=== PATIENT | female | born 1990 | race Caucasian/White ===

== ENCOUNTER → 2017-10-17 | Outpatient (CLI) | payer OTHER ==
[~2017-10-17] MED LIST: BACT800T5 PO; CEPH500 PO; LORTA5 PO; ZOFR4TAB3 SL
--- NOTE | 2017-10-18 21:18 | EKG ---
Date Performed: 10/17/2017 Time Performed: 16:41:18 PTAGE: 27 years EKG: SINUS BRADYCARDIA BORDERLINE ECG NO PREVIOUS TRACING DOCTOR: Shena Condon Interpretating Date/Time 10/18/2017 21:17:37
== END ==
LOC: HCAV 16:26
DX: E66.9 Obesity, unspecified (principal); R00.1 Bradycardia, unspecified
CPT/HCPCS: 93005

== ENCOUNTER 2017-12-06 06:07 | Inpatient (IN) ==
[2017-12-06] MEDS ORDERED: Famotidine PF Inj 20 MG/2 ML Vial ONE (07:29)
[2017-12-06] MEDS ORDERED: Scopalamine 1.5 MG Patch T-DERMAL ONE (07:33)
[2017-12-06] MEDS ORDERED: Metoprolol Tartrate 25 MG Tablet PO SCH (08:15)
[2017-12-06] MEDS ORDERED: Chlorhexidine Gluconate 2% 1 Pack (2 Cloths) TOPICAL SCH (08:15)
[2017-12-06] MEDS: Bupivacaine/Epinephrine Inj 0.25% 50 ML Vial ONE ×2 (08:36→16:52)
[2017-12-06] MEDS ORDERED: Sodium Chlor 0.9% Inj 500 ML IV.SIG SCH (09:00)
[2017-12-06] MEDS ORDERED: ceFAZolin 2 GM/NS 100 ML IV; Q8H IV.SIG SCH ×2 (09:00)
[2017-12-06] MEDS ORDERED: diphenhydrAMINE HCl 12.5 MG/5 ML Elixir UDC PO PRN (10:15)
[2017-12-06] MEDS ORDERED: Post-op Orders (for Pharmacy) OTHER STA (10:15)
[2017-12-06] MEDS ORDERED: Morphine Inj 30 MG/30 ML PCA.VIAL PCA PRN (10:18)
[2017-12-06] MEDS ORDERED: Naloxone Inj 0.4 MG/ML Vial IV.PUSH PRN (10:18)
[2017-12-06] MEDS ORDERED: fentaNYL Citrate Inj 100 MCG/2 ML Ampul ONE (10:37)
[2017-12-06] MEDS ORDERED: KCL 20 mEq/D5W/NaCl 0.45% Inj 1,000 ML ONE (10:37)
[2017-12-06] MEDS ORDERED: Morphine Inj 30 MG/30 ML PCA.VIAL PCA ONE (10:38)
[2017-12-06] MEDS ORDERED: Morphine Inj 4 MG/ML Vial ONE ×2 (10:38)
[2017-12-06] MEDS ORDERED: HYDROmorphone PF Inj 2 MG/ML Vial ONE (10:45)
[2017-12-06] MEDS: KCL 20 mEq/D5W/NaCl 0.45% Inj 1,000 ML IV.CONT SCH ×2 (11:42→21:00)
[2017-12-06] MEDS ORDERED: Neostigmine Inj 5 MG/5 ML Syringe IV.PUSH ONE (12:00)
[2017-12-06] MEDS ORDERED: Phenylephrine/NS 1000 MCG/10ML Syringe IV.PUSH ONE (12:00)
[2017-12-06] MEDS ORDERED: Glycopyrrolate Inj 1 MG/5 ML Syringe IV.PUSH ONE (12:00)
[2017-12-06] MEDS ORDERED: Esmolol Bolus Inj 100 MG/10 ML Vial IV.PUSH ONE (12:00)
[2017-12-06] MEDS ORDERED: Lidocaine PF 1% Inj 5 ML Syringe INFILTRATN ONE (12:00)
[2017-12-06] MEDS: Enoxaparin Inj 40 MG/0.4 ML Syringe SQ SCH (15:00)
[2017-12-07 06:33] LABS: Baso % (Auto) 0.4 % (0.0-2.0); Eos % (Auto) 0.4 % (0.0-4.0); Hematocrit 29.1 % (35.0-46.0); Hemoglobin 10.2 gm/dL (11.6-15.3); Lymph # (Auto) 1.8 th/mm3 (1.0-4.8); Lymph % (Auto) 26.5 % (9.0-44.0); Mean Corpuscular Hemoglobin 29.3 pg (27.0-34.0); Mean Corpuscular Volume 83.7 fL (80.0-100.0); Mean Platelet Volume 8.1 fL (7.0-11.0); Mono # (Auto) 0.6 th/mm3 (0.0-0.9); Mono % (Auto) 8.2 % (0.0-8.0); Neut # (Auto) 4.5 th/mm3 (1.8-7.7); Neut % (Auto) 64.5 % (16.0-70.0); Red Blood Count 3.47 mil/mm3 (4.00-5.30); Red Cell Distribution Width 12.8 % (11.6-17.2); White Blood Count 6.9 th/mm3 (4.0-11.0)
[2017-12-07 07:01] LABS: Anion Gap 7 meq/L (5-15); Blood Urea Nitrogen 7 mg/dL (7-18); Calcium 7.5 mg/dL (8.5-10.1); Carbon Dioxide 25.4 meq/L (21.0-32.0); Chloride 110 meq/L (98-107); Glomerular Filtration Rate Greater Than 89 mL/min (>89); Glucose,Random 96 mg/dL (74-106); Magnesium 2.1 mg/dL (1.5-2.5); Potassium 3.6 meq/L (3.5-5.1); Sodium 142 meq/L (136-145)
[2017-12-07] MEDS: KCL 20 mEq/D5W/NaCl 0.45% Inj 1,000 ML IV.CONT SCH ×3 (07:19→21:24)
[2017-12-07 07:48] LABS: Platelet Count 184 th/mm3 (150-450); Platelet Estimate Normal (Normal); Platelet Morphology Normal (Normal)
--- NOTE | 2017-12-07 12:13 | P.PNGS ---
Subjective Interval history: Pain and nausea well contolled Physical Exam Vital signs: Vital Signs 12/06/17 13:30 12/06/17 14:00 12/06/17 16:19 Temperature 98.5 F Pulse Rate 81 Respiratory Rate 18 17 Blood Pressure 94/50 L Pulse Oximetry 94 L 99 99 12/06/17 18:17 12/06/17 20:00 12/07/17 00:00 Temperature 98.2 F 97.8 F 98.1 F Pulse Rate 57 L 61 54 L Respiratory Rate 17 17 18 Blood Pressure 91/54 L 104/68 95/56 L Pulse Oximetry 96 98 97 12/07/17 05:10 12/07/17 08:00 Temperature 97.6 F 98.0 F Pulse Rate 71 56 L Respiratory Rate 17 17 Blood Pressure 102/55 L 82/52 L Pulse Oximetry 96 98 Intake & Output 12/06/17 12/07/17 12/07/17 18:59 06:59 18:59 Intake Total 2910 / 2910 1760 / 1760 1200 / 1200 Output Total 250 / 250 Balance 2660 / 2660 1760 / 1760 1200 / 1200 Weight 99 kg Intake: IV 1700 / 1700 1400 / 1400 1200 / 1200 D5W/1/2NS + KCL 20 mEq Inj 1, 1000 / 1000 1000 / 1000 000 ML @ 125 mls/hr IV.CONT . Q8H ADRIANNE Rx#:[id number] Ofirmev Inj 1,000 mg In 100 ml 200 / 200 200 / 200 @ 400 mls/hr IV.SIG Q6H ADRIANNE Rx# :[id number] LR 1000 mL Inj 1,000 ML @ 30 1000 / 1000 mls/hr IV.SIG .Q24H ADRIANNE Rx#: [id number] Ancef Inj 1,000 MG In NS Inj 100 / 100 100 / 100 100 / 100 100 ML @ 200 mls/hr IV.SIG Q8H ADRIANNE Rx#:[id number] Ancef Inj 2,000 MG In NS Inj 80 100 / 100 ML @ 200 mls/hr IV.SIG ENGINE WATCHMAN ADRIANNE Rx#:[id number] Flagyl 500 MG Inj 100 ML @ 100 300 / 300 100 / 100 100 / 100 mls/hr IV.SIG Q8H ADRIANNE Rx#: [id number] Oral 210 / 210 360 / 360 Anesthesia Amount 1000 / 1000 Output: Urine 200 / 200 Estimated Blood Loss 50 / 50 Other: # Voids 4 # Bowel Movements 0 Narrative: GENERAL: NAD CARDIOVASCULAR: RRR RESPIRATORY: CTA GASTROINTESTINAL: Abdomen soft, normal post operative tenderness MUSCULOSKELETAL: Extremities without clubbing, cyanosis, or edema. - Additional findings Additional findings: Laboratory Results - last 12 hr 12/07/17 12/07/17 05:52 05:52 WBC 6.9 RBC 3.47 L Hgb 10.2 L Hct 29.1 L MCV 83.7 MCH 29.3 MCHC 35.0 RDW 12.8 Plt Count 184 MPV 8.1 Prelim Diff (Auto) Slide review pending Neut % (Auto) 64.5 Lymph % (Auto) 26.5 [place] % (Auto) 8.2 H Eos % (Auto) 0.4 Baso % (Auto) 0.4 Neut # (Auto) 4.5 Lymph # (Auto) 1.8 [place] # (Auto) 0.6 Eos # (Auto) 0.0 Baso # (Auto) 0.0 WBC Differential . Diff Scan Auto diff confirmed Differential Comment . 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 I reviewed and agree with the findings presented. I attest that I had a [id number] encounter with the patient on the same day, and personally performed and documented my assessment and findings in the medical record.
[2017-12-07] MEDS: Enoxaparin Inj 40 MG/0.4 ML Syringe SQ SCH (15:23)
[2017-12-07] MEDS: Acetaminophen-HYDROcodone 325/7.5 Liq 15 ML UDC PO PRN (19:00)
[2017-12-08 01:40] VITALS: RESP 16
[2017-12-08] MEDS: KCL 20 mEq/D5W/NaCl 0.45% Inj 1,000 ML IV.CONT SCH (03:47)
[2017-12-08] MEDS: Acetaminophen-HYDROcodone 325/7.5 Liq 15 ML UDC PO PRN (03:47)
[2017-12-08 08:22] VITALS: BP 103/55; PULSE 61; TEMP 98.2; O2SAT 97
--- NOTE | 2017-12-13 21:06 | MP ---
cc: Robb Pyle MD, Joel L MD DATE OF OPERATION: 12/06/2017 DATE OF OPERATION: 12/06/2017 PREOPERATIVE DIAGNOSES: 1. Severe reflux, unresponsive to medical management. 2. Obesity. POSTOPERATIVE DIAGNOSES: 1. Severe reflux, unresponsive to medical management. 2. Obesity. PROCEDURE PERFORMED: Laparoscopic Kelvin-en-Y gastric bypass, 100 cm Kelvin limb, antegastric, antecolic. SURGEON: Robb Pyle MD DREDGE PUMPER: Smooth Valdivia MD. Dr. Valdivia's assistance was necessary for the procedure due to the complexity of the procedure. Dr. Valdivia assisted with manipulation and exposure during the procedure. Dr. Valdivia was present for the entire procedure. The construction project assistant provided by [employer] was utilized managing the camera. ANESTHESIA: General endotracheal anesthesia. ESTIMATED BLOOD LOSS: Less than 10 mL FINDINGS: Fatty liver. SPECIMENS: None. COMPLICATIONS: None. OPERATION: The patient was brought to the operating room and placed on the operating table in supine position. Bilateral sequential inflation device placed on lower extremities, general anesthesia instituted. Antibiotics initiated. The abdomen was prepped and draped sterilely. A point in the umbilicus was anesthetized with 0.25% Marcaine with epinephrine. The skin incision was made, 5-mm Optiview port placed under direct vision, and pneumoperitoneum created. Under direct vision, a 5-mm left upper quadrant, 12-mm left upper quadrant, 12-mm right upper quadrant and 5-mm right upper quadrant ports were placed. Prior to placement of all ports, the skin and peritoneum were anesthetized with 0.25% Marcaine with epinephrine. The patient's abdominal cavity was inspected, findings as above. The omentum was lifted into the upper abdomen. It was split down the middle to create a path for the Kelvin limb. The ligament of Treitz was identified, a point 40 cm distal identified. The small bowel was divided in this region using [place] Flex stapler vascular load reinforced with SeamGuard. The distal was brought up for a distance of 100 cm. An enterotomy created in this region, enterotomy in the biliopancreatic limb, and a [id number] stapled jejunojejunostomy created in the usual manner. The mesenteric defect at the jejunojejunostomy closed with 2-0 Surgidac suture in a running manner. The patient was placed in reverse Trendelenburg position, left side up. Genoveva-Flex retractor was placed. The left lobe of the liver was retracted. The omentum was taken down off of the lateral staple line. A point 5 cm distal to the GE junction identified. The lesser sac entered. The stomach partitioned horizontally using the [place] Flex stapler Gold load. The Kelvin limb was then brought up, a gastrotomy created in the stomach, enterotomy in the Kelvin limb. The gastrojejunostomy created using a blue staple fire and stomal opening of 2 cm. An 18-Croatian OG tube placed across the anastomosis. The defect was then closed in 2 layers of running 2-0 Vicryl. Prior to placement of the second layer, methylene blue instilled through the OG tube. There was no evidence of extravasation. Evicel was then placed over the gastrojejunostomy, jejunojejunostomy and all staple lines. The operative field was inspected. Hemostasis was present. The Genoveva-Flex retractor was removed. CO2 released. All ports were removed, all skin incisions closed with 4-0 Monocryl. The abdominal wall was cleaned and a sterile dressing placed. The patient was awakened and taken to the recovery room. MD MYLES Celeste/cheryl/ashlyn , 06:58 PM , 07:08 PM
== END 2017-12-08 11:51 | disposition home or self-care (01) ==
LOC: HSDI 06:07 → EDSTATUS 08:00 → N07 13:21 → UNDODISIN 12-08 11:03
PROVIDERS: ADMIT Surgery; ATTEND Surgery

== ENCOUNTER 2017-12-12 23:46 | Inpatient (IN) ==
[2017-12-13 00:56] LABS: Baso # (Auto) 0.1 th/mm3 (0.0-0.2); Baso % (Auto) 0.7 % (0.0-2.0); Eos # (Auto) 0.4 th/mm3 (0.0-0.4); Eos % (Auto) 4.4 % (0.0-4.0); Hematocrit 37.4 % (35.0-46.0); Hemoglobin 12.5 gm/dL (11.6-15.3); Lymph # (Auto) 2.3 th/mm3 (1.0-4.8); Lymph % (Auto) 25.8 % (9.0-44.0); Mean Corpuscular HGB Conc 33.3 % (32.0-36.0); Mean Platelet Volume 8.3 fL (7.0-11.0); Mono # (Auto) 0.7 th/mm3 (0.0-0.9); Mono % (Auto) 7.6 % (0.0-8.0); Neut # (Auto) 5.5 th/mm3 (1.8-7.7); Neut % (Auto) 61.5 % (16.0-70.0); Platelet Count 291 th/mm3 (150-450); Red Blood Count 4.46 mil/mm3 (4.00-5.30); Red Cell Distribution Width 12.9 % (11.6-17.2)
[2017-12-13 00:57] LABS: Albumin 3.4 g/dL (3.4-5.0); Anion Gap 8 meq/L (5-15); Aspartate Aminotransferase 13 U/L (15-37); Blood Urea Nitrogen 12 mg/dL (7-18); Calcium 8.7 mg/dL (8.5-10.1); Carbon Dioxide 24.5 meq/L (21.0-32.0); Chloride 108 meq/L (98-107); Glomerular Filtration Rate Greater Than 89 mL/min (>89); Glucose,Random 84 mg/dL (74-106); Lipase 666 U/L (73-393); Sodium 140 meq/L (136-145)
[2017-12-13 01:02] LABS: Alanine Aminotransferase 19 U/L (10-53); Alkaline Phosphatase 107 U/L (45-117); Total Protein 7.5 g/dL (6.4-8.2)
[2017-12-13] MEDS ORDERED: HYDROmorphone PF Inj 0.5 MG/0.5 ML Syringe IV.PUSH ONE (02:00)
[2017-12-13] MEDS ORDERED: HYDROmorphone PF Inj 2 MG/ML Vial IV.PUSH ONE ×2 (02:28→05:04)
--- NOTE | 2017-12-13 03:02 | ED ---
HPI General Chief complaint: Abdominal Pain Stated complaint: Post op pain 12/06 Time Seen by Provider: 12/13/17 01:08 Source: patient Limitations: no limitations History of Present Illness HPI narrative: The patient is a 27 year old female who presents to the [facility] emergency department with a history of increasing abdominal pain that began between 3 and 4 PM today. The patient reports that the pain is in the upper aspect of the abdomen. She reports that she had mild pain postoperatively since December 06 when she had a gastric bypass done by Dr. Joy. She reports that suddenly the pain became much worse today. The patient reports the pain is a cramping/tightening sensation that radiates to her back. She denies having any redness of her postop wounds. She denies having any drainage. She denies having any recent fevers or chills. She denies having any nausea, vomiting, or diarrhea associated with this. In fact she reports that she did move her bowels earlier today, however it was harder than usual at 1 PM. She reports that she has been taking an [id number] stool softener. She denies having any blood in her stool. The patient reports that prior to having the gastric bypass done she did have a gastric sleeve done in 2014. This required reversal due to severe acid reflux. She is currently on pantoprazole. She reports that she is on Tylenol with codeine syrup for pain. She reports that she last took a dose earlier this evening. On review of systems otherwise, the patient denies having any cough, congestion, neck pain , chest pain, shortness of breath, or neurologic symptoms. She denies having any dysuria or urinary urgency, however she has had urinary frequency. She is unsure whether she had a catheter in place for the procedure. LMP: December 03, 2017 Related Data Home Medications Medication Instructions Recorded Confirmed multivitamin [Daily Multi-Vitamin] 1 tab PO TID 12/04/17 12/13/17 pantoprazole 40 mg PO BID 12/04/17 12/13/17 Allergies Allergy/AdvReac Type Severity Reaction Status Date / Time No Known Allergies Allergy Verified 12/06/17 07:17 Review of Systems ROS: all other systems reviewed are negative (Except for that which was mentioned in the HPI.) [facility] Medical History Medical History Wears glasses (Acute) Hx of abdominal abscess (Acute) Back pain (Acute) Uses contraceptive implant for control (Acute) Asthma (Acute) GERD (gastroesophageal reflux disease) (Acute) Surgical History Surgical History Hx of tonsillectomy (Acute) Hx of cholecystectomy (Acute) History of gastric surgery (Acute) Social History Social History Substance History: No History of Abuse Second Hand Smoke Exposure: No Smoking Status: Never smoker How Often Do You Have a Drink Containing Alcohol: Monthly or less Recent Travel in [facility] within the Last 8 Weeks: No Recent Out of Country Travel within the Last 8 Weeks: No Immunization History Tetanus Immunization: <5 Years Hx Influenza Vaccine This Season: Yes Exam Const General: cooperative, well developed and acute distress (Related to upper abdominal pain.) moderate HENMT Head: normocephalic and atraumatic Nose: no nasal discharge and no epistaxis Mouth: other (Tacky mucous membranes.) Throat: posterior oropharynx normal and uvula midline Eyes Sclera: normal sclerae Pupils: PERRL Neck Neck: no meningeal signs, trachea midline and no JVD Resp Effort & Inspection: no use of accessory muscles Auscultation: clear to auscultation bilaterally Cardio Rate: regular rate Rhythm: regular rhythm Heart Sounds: no murmurs GI Inspection: non-distended Palpation: soft, no hepatosplenomegaly and tender in the epigastrum, in the LLQ and periumbilically (Along with the area just above the umbilicus. The postoperative wounds appear to be healing well. There is no increased erythema , drainage, or induration noted.); not in the RLQ, not in the LUQ, not in the RUQ, not at McBurney's point, not suprapubicly and Chan's sign negative Auscultation: normal bowel sounds Back/Spine/Pelvis Back: no CVA tenderness Skin General: dry skin (warm) Neuro General: alert, awake and oriented x3 Cranial Nerves: other (No facial asymmetry.) Speech: speech normal Motor: no movement abnormalities noted Extrem General: normal to inspection (No calf tenderness on palpation. 2+ pulses in all 4 extremities.), no clubbing, no cyanosis and no edema Psych Mood: congruent mood Affect: normal affect Judgment: judgment good Course Consultations Consultation #1: The patient's case including history, pertinent physical examination findings, and laboratory studies were discussed with Dr. Joy. He requested that the patient be held in the emergency department for his evaluation. Time: 04:37 Initial Documented Vital Signs Temperature 97.9 F 12/12/17 23:57 Pulse Rate 107 H 12/12/17 23:57 Respiratory Rate 20 12/12/17 23:57 Blood Pressure 103/65 12/12/17 23:57 Pulse Oximetry 100 12/12/17 23:57 Last Documented Vital Signs Temperature 97.9 F 12/12/17 23:57 Pulse Rate 66 12/13/17 04:00 Respiratory Rate 18 12/13/17 04:00 Blood Pressure 94/51 L 12/13/17 04:00 Pulse Oximetry 100 12/13/17 04:00 Medical Decision Making MDM Narrative Medical decision making narrative: During the course of the patient's emergency department visit, the patient's history, examination, and differential diagnosis were reviewed with the patient. The patient was placed on a live games dealer with oximetry and frequent blood pressure monitoring. The patient had IV access obtained and blood work sent for analysis. A diagnostic evaluation was started regarding this patient's postoperative abdominal pain. The patient was initially provided normal saline 1 L IV fluid bolus, Zofran 4 mg IV, hydromorphone 0.5 mg IV. The patient had a recurrence of pain and required additional pain medication, 0.5 mg IV. The patient's diagnostic evaluation is remarkable for a white count that is normal at 9, differential within normal limits, platelets 291, hemoglobin 12.5, chemistry is remarkable for a lipase of 666, chloride 108, AST 13, CT scan of the abdomen and pelvis revealed stranding of the mesentery with small volume free fluid within the pelvis, findings suggest acute mesenteritis. Scattered subcutaneous air involving the anterior abdominal wall without associated inflammatory change. Prior gastric bypass, prior cholecystectomy. A call was placed out to the patient's surgeon. He recommended that the patient be observed in the emergency department until later this morning when he can reexamine the patient. The patient was observed until Dr. Joy again reevaluated the patient. The patient after reevaluation by him after reevaluation, he recommended admission for continued evaluation and treatment, repeat lipase. The patient's results were discussed with the patient, including the plan of care. I explained that further testing and/ or monitoring is indicated based on the patient's history, examination, and/ or laboratory findings. Therefore, I recommended admission for additional evaluation. The patient expressed understanding and was agreeable with this plan. The patient was admitted to the hospital in stable condition and sent to a bed under the care of Dr. Joy' s service Medical Screen Exam Complete: Yes Emergency Medical Condition: Yes Differential Diagnosis Differential Diagnosis: Postoperative abscess formation, versus trapped gas, versus bowel obstruction, versus pancreatitis, versus peptic ulcer disease Medical Records Medical records reviewed: Yes I reviewed the patient's medical records. POC Test Results POC Urine Results: Negative Lab Data Lab results reviewed: Yes I reviewed the patient's lab results. Result diagrams: 12/13/17 00:20 12/13/17 00:20 Lab Results 12/13/17 12/13/17 Range/Units 00:20 00:20 WBC 9.0 (4.0-11.0) th/mm3 RBC 4.46 (4.00-5.30) mil/mm3 Hgb 12.5 (11.6-15.3) gm/dL Hct 37.4 (35.0-46.0) % MCV 84.0 (80.0-100.0) fL MCH 28.0 (27.0-34.0) pg MCHC 33.3 (32.0-36.0) % RDW 12.9 (11.6-17.2) % Plt Count 291 D (150-450) th/mm3 MPV 8.3 (7.0-11.0) fL Neut % (Auto) 61.5 (16.0-70.0) % Lymph % (Auto) 25.8 (9.0-44.0) % [place] % (Auto) 7.6 (0.0-8.0) % Eos % (Auto) 4.4 H (0.0-4.0) % Baso % (Auto) 0.7 (0.0-2.0) % Neut # (Auto) 5.5 (1.8-7.7) th/mm3 Lymph # (Auto) 2.3 (1.0-4.8) th/mm3 [place] # (Auto) 0.7 (0.0-0.9) th/mm3 Eos # (Auto) 0.4 (0.0-0.4) th/mm3 Baso # (Auto) 0.1 (0.0-0.2) th/mm3 WBC Differential . Differential Comment Auto diff final Sodium 140 (136-145) meq/L Potassium 4.0 (3.5-5.1) meq/L Chloride 108 H (98-107) meq/L Carbon Dioxide 24.5 (21.0-32.0) meq/L Anion Gap 8 (5-15) meq/L BUN 12 (7-18) mg/dL Creatinine 0.77 (0.50-1.00) mg/dL Estimated GFR Greater than 89 (>89) mL/min Random Glucose 84 (74-106) mg/dL Calcium 8.7 (8.5-10.1) mg/dL Total Bilirubin 0.2 (0.2-1.0) mg/dL AST 13 L (15-37) U/L ALT 19 (10-53) U/L Alkaline Phosphatase 107 (45-117) U/L Total Protein 7.5 (6.4-8.2) g/dL Albumin 3.4 (3.4-5.0) g/dL Lipase 666 H (73-393) U/L Beta HCG, Quant Less than 1 (0-5) mIU/mL Imaging Data Radiologist's impression: Abdomen/Pelvis CT 12/13/17 01:58 CONCLUSION: 1. Stranding of the mesentery with small volume free fluid within the pelvis. Findings suggest acute mesenteritis. 2. Scattered subcutaneous air involving the anterior abdominal wall without associated inflammatory change. Exact etiology is uncertain. It could relate to subcutaneous medication administration. The largest collection is within the left groin. 3. Prior gastric bypass. 4. Prior cholecystectomy. Discharge Plan Discharge Disposition Patient Disposition: 30 Still Patient Discharge Details Diagnosis: Acute postoperative abdominal pain Physicians Team ED Provider: Tameka Martinez Primary Care Provider: Robb Pyle Attending Provider: Robb Pyle Discharge Interventions Interventions: Vital Signs Last Done: 12/13/17 04:00 Status ED Status: Admitted Observation Patient
[2017-12-13] MEDS ORDERED: Morphine Inj 4 MG/ML Vial IV.PUSH ONE (03:06)
--- NOTE | 2017-12-13 03:39 | CT ---
EXAM DATE: 12/13/2017 3:05 AM EDT AGE/SEX: 27 years / Female INDICATIONS: Left lower quadrant pain today. CLINICAL DATA: This is the patient's initial encounter. Patient reports that signs and symptoms have been present for 1 day and indicates a pain score of 7/10. MEDICAL/SURGICAL HISTORY: Gastroesophageal reflux disease. Cholecystectomy. Gastric bypass. ORAL CONTRAST: No oral contrast ingested. RADIATION DOSE: 14.07 CTDI (mGy) COMPARISON: [facility], CT ABDOMEN AND PELVIS W AND W/O CONTRAST, 02/09/2016. . TECHNIQUE: Multiple contiguous axial images were obtained through the abdomen and pelvis following b olus infusion of 96 ml Omnipaque 350 (iohexol) nonionic water-soluble contrast as a single exam dos e. No oral contrast ingested. Using automated exposure control and adjustment of the mA and/or kV ac cording to patient size, radiation dose was kept as low as reasonably achievable to obtain optimal di agnostic quality images. DICOM format image data is available electronically for review and comparis on. FINDINGS: Lower Lungs: The visualized lower lungs are clear. Liver: The liver has a homogeneous density without space-occupying lesion. There is no dilation of th e biliary tree. Spleen: Homogeneous density without enlargement. Pancreas: Unremarkable without mass or calcification. Kidneys: Normal in size and shape. No evidence of mass or hydronephrosis. Adrenal Glands: Unremarkable. Aorta: The aorta and proximal iliac vessels are grossly unremarkable without aneurysmal dilation. Bowel/Mesentery: Mild stranding of the mesenteric fat within the right mid abdomen. No fluid collect ions. The bowel structures are unremarkable. No wall thickening. Prior gastric bypass surgery noted. Trace amount of free fluid within the cul-de-sac. Abdominal Wall: Scattered small foci of subcutaneous air involving the anterior abdominal wall bilat erally. Largest collection of subcutaneous air involves the left groin superficially. This air is wit hout associated inflammatory change. Retroperitoneum: No evidence of adenopathy in the retrocrural, para-aortic, or deep pelvic regions. Bladder: Contours are smooth. Reproductive Organs: No abnormal masses or calcifications seen. Inguinal: The inguinal region is unremarkable without evidence of adenopathy. Bony Structures: Unremarkable. CONCLUSION: 1. Stranding of the mesentery with small volume free fluid within the pelvis. Findings suggest acute mesenteritis. 2. Scattered subcutaneous air involving the anterior abdominal wall without associated inflammatory change. Exact etiology is uncertain. It could relate to subcutaneous medication administration. The l argest collection is within the left groin. 3. Prior gastric bypass. 4. Prior cholecystectomy. Electronically signed by: Miki Butcher MD 12/13/2017 3:38 AM EDT
[2017-12-13] MEDS: HYDROmorphone PF Inj 2 MG/ML Vial IV.PUSH PRN ×4 (08:31→21:22)
[2017-12-13] MEDS ORDERED: Neostigmine Inj 5 MG/5 ML Syringe IV.PUSH ONE (12:00)
[2017-12-13] MEDS ORDERED: Glycopyrrolate Inj 1 MG/5 ML Syringe IV.PUSH ONE (12:00)
[2017-12-13] MEDS ORDERED: Lidocaine PF 1% Inj 5 ML Syringe INFILTRATN ONE (12:00)
[2017-12-13] MEDS ORDERED: Phenylephrine/NS 1000 MCG/10ML Syringe IV.PUSH ONE (12:00)
--- NOTE | 2017-12-13 14:10 | P.HPGS ---
History of Present Illness Service: General Surgery Primary Care Physician: Robb Pyle MD Chief Complaint: Abdominal Pain History of Present Illness: Ms. Petit is a 27yo female with a past medical history of obesity, bariatric surgery, and GERD. She was recently converted from a sleeve gastrectomy to Kelvin-en-Y gastric bypass due to uncontrolled reflux. She presented to the emergency room last night with complaints of severe abdominal pain. She describes the pain as sharp and located in the epigastric area that radiates to her back. She denies any nausea or vomiting, no diet changes or recent travel. CT exam shows subcutaneous air in the abdomen. She also had significant elevation in her lipase so decision was made for admission with possible surgical evaluation Inpatient Certification: I certify that the inpatient services were ordered in accordance with Medicare regulations governing the order. This includes certification that hospital inpatient services are reasonable and necessary and in the case of services not specified as inpatient-only under 42 CFR 419.22(n), that they are appropriately provided as inpatient services in accordance to with the 2-midnight benchmark under 43 CFR 412.3(e) Plans for Post Hospital Care: Home Review of Systems All other systems reviewed negative except as stated in HPI PMFSH - History History Provided By: Patient - Medical History Medical History: Medical History (Last Reviewed 12/13/17 @ 02:59 by Tameka Martinez MD) Wears glasses (Acute) Hx of abdominal abscess (Acute) Back pain (Acute) Uses contraceptive implant for control (Acute) Asthma (Acute) GERD (gastroesophageal reflux disease) (Acute) - Surgical History Surgical History: Surgical History (Last Reviewed 12/13/17 @ 02:59 by Tameka Martinez MD) Hx of tonsillectomy (Acute) Hx of cholecystectomy (Acute) History of gastric surgery (Acute) - Tobacco History Second Hand Smoke Exposure: No Tobacco Use In Past 30 Days: No Smoking Status: Never smoker - Alcohol History How Often Do You Have a Drink Containing Alcohol: Monthly or less - Substance Use History Substance History: No History of Abuse - Travel History Recent Travel in the [place] Within the Last 8 Weeks: No Recent Travel Out of the Country Within the Last 8 Weeks: No - Immunization History Tetanus Immunization: <5 Years Hx Influenza Vaccine This Season: Yes Medications and Allergies Active Medications: Active Medications Hydromorphone HCl (Dilaudid Pf Inj) 0.5 mg IV.PUSH Q4H PRN PRN Reason: ABDOMINAL PAIN Last Admin: 12/13/17 12:23 Dose: 0.5 mg Potassium Chloride/Sodium Chloride (Ns + Kcl 20 Meq Inj) 1,000 mls @ 125 mls/ hr IV.CONT .Q8H [facility] Last Admin: 12/13/17 09:49 Dose: 125 mls/hr Metoclopramide HCl (Reglan Inj) 10 mg IM Q6H [facility]NE; Protocol Last Admin: 12/13/17 09:47 Dose: 10 mg Ondansetron HCl (Zofran Inj) 4 mg IV.PUSH Q6H PRN PRN Reason: NAUSEA OR VOMITING Pantoprazole Sodium (Protonix) 40 mg PO DAILY [facility] Last Admin: 12/13/17 09:47 Dose: 40 mg Allergies Allergy/AdvReac Type Severity Reaction Status Date / Time No Known Allergies Allergy Verified 12/06/17 07:17 Home Medications Medication Instructions Recorded Confirmed Type multivitamin [Daily Multi-Vitamin] 1 tab PO TID 12/04/17 12/13/17 History pantoprazole 40 mg PO BID 12/04/17 12/13/17 History Exam Vital signs: Vital Signs 12/12/17 23:57 12/13/17 00:50 12/13/17 02:36 Temperature 97.9 F Pulse Rate 107 H 98 H 83 Respiratory Rate 20 21 Blood Pressure 103/65 105/59 L 100/76 Pulse Oximetry 100 99 100 12/13/17 03:00 12/13/17 04:00 12/13/17 08:00 Temperature 97.9 F Pulse Rate 88 66 93 H Respiratory Rate 18 18 17 Blood Pressure 92/54 L 94/51 L 113/72 Pulse Oximetry 100 100 98 12/13/17 10:42 Temperature 97.7 F Pulse Rate 78 Respiratory Rate 32 H Blood Pressure 107/67 Pulse Oximetry 97 Intake & Output 12/12/17 12/13/17 12/13/17 18:59 06:59 18:59 Weight 93.44 kg Other: Date of Last Bowel Movement 12/12/17 Narrative: GENERAL: This is a well-nourished, well-developed female, appears mildly uncomfortable CARDIOVASCULAR: Regular rate and rhythm without murmurs, gallops, or rubs. RESPIRATORY: Clear to auscultation. Breath sounds equal bilaterally. No wheezes , rales, or rhonchi. GASTROINTESTINAL: Abdomen very tender to light palpation, mildly distended MUSCULOSKELETAL: Extremities without clubbing, cyanosis, or edema. NEURO: Alert & Oriented x4 to person, place, time, situation. Moves all ext x4 Results - Results Additional studies: Laboratory Results - last 24 hr 12/13/17 12/13/17 12/13/17 00:20 00:20 08:40 WBC 9.0 RBC 4.46 Hgb 12.5 Hct 37.4 MCV 84.0 MCH 28.0 MCHC 33.3 RDW 12.9 Plt Count 291 D MPV 8.3 Neut % (Auto) 61.5 Lymph % (Auto) 25.8 Arroyo % (Auto) 7.6 Eos % (Auto) 4.4 H Baso % (Auto) 0.7 Neut # (Auto) 5.5 Lymph # (Auto) 2.3 Arroyo # (Auto) 0.7 Eos # (Auto) 0.4 Baso # (Auto) 0.1 WBC Differential . Differential Comment Auto diff final Sodium 140 Potassium 4.0 Chloride 108 H Carbon Dioxide 24.5 Anion Gap 8 BUN 12 Creatinine 0.77 Estimated GFR Greater than 89 Random Glucose 84 Calcium 8.7 Total Bilirubin 0.2 AST 13 L ALT 19 Alkaline Phosphatase 107 Total Protein 7.5 Albumin 3.4 Lipase 666 H 455 H Beta HCG, Quant Less than 1 Impressions Abdomen/Pelvis CT 12/13/17 01:58 CONCLUSION: 1. Stranding of the mesentery with small volume free fluid within the pelvis. Findings suggest acute mesenteritis. 2. Scattered subcutaneous air involving the anterior abdominal wall without associated inflammatory change. Exact etiology is uncertain. It could relate to subcutaneous medication administration. The largest collection is within the left groin. 3. Prior gastric bypass. 4. Prior cholecystectomy. Caprini VTE Risk Assessment Caprini VTE Risk Assessment: No/Low Risk (score <= 1) Caprini Risk Assessment Model: Point Value = 1 Point Value = 2 Point Value = 3 Point Value = 5 Age 41-60 Minor surgery BMI > 25 kg/m2 Swollen legs Varicose veins or History of unexplained or recurrent spontaneous Oral contraceptives or hormone replacement Sepsis (< 1 month) Serious lung disease, including pneumonia (< 1 month) Abnormal pulmonary function Acute myocardial infarction Congestive heart failure (< 1 month) History of inflammatory bowel disease Medical patient at bed rest Age 61-74 Arthroscopic surgery Major open surgery (> 45 min) Laparoscopic surgery (> 45 min) Malignancy Confined to bed (> 72 hours) Immobilizing plaster cast Central venous access Age >= 75 History of VTE Family history of VTE Factor V Leiden Prothrombin [id number] Lupus anticoagulant Anticardiolipin antibodies Elevated serum homocysteine Heparin-induced thrombocytopenia Other congenital or acquired thrombophilia Stroke (< 1 month) Elective arthroplasty Hip, pelvis, or leg fracture Acute spinal cord injury (< 1 month) Prophylaxis Regimen: Total Risk Factor Score Risk Level Prophylaxis Regimen 0-1 Low Early ambulation 2 Moderate Order ONE of the following: *Sequential Compression Device (SCD) *Heparin 5000 units SQ BID 3-4 Higher Order ONE of the following medications: *Heparin 5000 units SQ TID *Enoxaparin/Lovenox 40 mg SQ daily (WT < 150 kg, CrCl > 30 mL/min) *Enoxaparin/Lovenox 30 mg SQ daily (WT < 150 kg, CrCl > 10-29 mL/min) *Enoxaparin/Lovenox 30 mg SQ BID (WT < 150 kg, CrCl > 30 mL/min) AND/OR *Sequential Compression Device (SCD) 5 or more Highest Order ONE of the following medications: *Heparin 5000 units SQ TID (Preferred with Epidurals) *Enoxaparin/Lovenox 40 mg SQ daily (WT < 150 kg, CrCl > 30 mL/min) *Enoxaparin/Lovenox 30 mg SQ daily (WT < 150 kg, CrCl > 10-29 mL/min) *Enoxaparin/Lovenox 30 mg SQ BID (WT < 150 kg, CrCl > 30 mL/min) AND *Sequential Compression Device (SCD) Assessment and Plan - Plan 27yo F with abdominal pain s/p RNY -Keep NPO, will schedule for diagnostic laparoscopy with possible repair of visceral defect. Code Status: Full Discussed Condition With: Patient, RN at bedside This patient was examined by Dr. Pyle and this note was written on his behalf Discharge Planning: Depending on hospital course - Attending Attestation The exam, history, and the medical decision-making described in the above note were completed with the assistance of the mid-level provider. I reviewed and agree with the findings presented. I attest that I had a [id number] encounter with the patient on the same day, and personally performed and documented my assessment and findings in the medical record.
[2017-12-13] MEDS: Bupivacaine/Epinephrine PF Inj 0.25% 10 ML Vial ONE ×2 (14:32→22:04)
[2017-12-13] MEDS ORDERED: fentaNYL Citrate Inj 100 MCG/2 ML Ampul ONE (15:24)
--- NOTE | 2017-12-13 19:50 | MP ---
cc: Robb Pyle MD DATE OF OPERATION: 12/12/2017 DATE OF OPERATION: 12/12/2017 PREOPERATIVE DIAGNOSIS: Abdominal pain, questionable perforated viscus. POSTOPERATIVE DIAGNOSIS: No evidence of perforated viscus. PROCEDURE: Diagnostic laparoscopy. SURGEON: Robb Pyle MD ANESTHESIA: General endotracheal anesthesia. ESTIMATED BLOOD LOSS: Scant. INDICATIONS: This is a 27-year-old patient who had a laparoscopic Kelvin-en-Y gastric bypass one week prior. The patient was doing well until last evening when she developed severe abdominal pain. The patient's pain was unremitting and she presented to [place]. A CAT scan revealed fluid in the pelvis and subcutaneous air. The patient clinically was not improving. It was thought that she may have perforated viscus or leak at anastomosis. As a result, she was taken to the operating room for diagnostic laparoscopy. FINDINGS: No evidence of peritoneal contamination. No evidence of leak. The patient did have inflammation around her gastrojejunostomy and jejunojejunostomy with small bowel stuck to the jejunojejunostomy but no evidence of leak of gastric content or enteric content. SPECIMENS: None. COMPLICATIONS: None. DESCRIPTION OF PROCEDURE: After the patient was brought to the operating room, placed on the operating table in supine position. Bilateral sequential inflation device placed on lower extremities. General anesthesia was instituted. Flores catheter was placed. The abdomen was prepped and draped sterilely. The patient's epigastric incision was anesthetized with 0.25% Marcaine with epinephrine. A skin incision was made. A 5 mm Optiview port placed under direct vision and pneumoperitoneum created. Under direct vision, a 5 mm left upper quadrant and 5 mm right upper quadrant port was placed. The abdominal cavity was inspected. Findings as above. No evidence of obstruction. Fluid was identified in the pelvis that appeared serosanguineous, small amount. Adhesions of the Kelvin limb to the jejunojejunostomy were taken down. Two 19-Honduran JPs were left in the peritoneal cavities; one then at the gastrojejunostomy and one at the jejunojejunostomy. At this point, the operation was terminated. CO2 was released. All ports were removed. The drains were secured with a 3-0 nylon and the laparoscopic incisions approximated with 4-0 Monocryl. The abdominal wall was cleaned and a sterile dressing placed. The patient was awakened and taken to the recovery room. MD MYLES Celeste/rene , 06:35 PM , 06:44 PM
[2017-12-14] MEDS ORDERED: Acetaminophen-HYDROcodone 325/7.5 Liq 15 ML UDC PO PRN (00:27)
[2017-12-14] MEDS: Acetaminophen-HYDROcodone 325/7.5 Liq 15 ML UDC PO PRN ×4 (00:45→23:31)
[2017-12-14] MEDS: HYDROmorphone PF Inj 2 MG/ML Vial IV.PUSH PRN ×4 (03:36→21:05)
[2017-12-14] MEDS: Enoxaparin Inj 40 MG/0.4 ML Syringe SQ SCH (09:33)
[2017-12-14 10:22] LABS: Hematocrit 33.7 % (35.0-46.0); Hemoglobin 11.3 gm/dL (11.6-15.3); Mean Corpuscular HGB Conc 33.5 % (32.0-36.0); Mean Corpuscular Hemoglobin 28.4 pg (27.0-34.0); Mean Platelet Volume 8.2 fL (7.0-11.0); Platelet Count 244 th/mm3 (150-450); Red Blood Count 3.96 mil/mm3 (4.00-5.30); Red Cell Distribution Width 12.6 % (11.6-17.2); White Blood Count 6.5 th/mm3 (4.0-11.0)
[2017-12-14 11:05] LABS: Alanine Aminotransferase 20 U/L (10-53); Albumin 2.8 g/dL (3.4-5.0); Alkaline Phosphatase 101 U/L (45-117); Anion Gap 8 meq/L (5-15); Aspartate Aminotransferase 15 U/L (15-37); Blood Urea Nitrogen 7 mg/dL (7-18); Calcium 7.9 mg/dL (8.5-10.1); Carbon Dioxide 23.6 meq/L (21.0-32.0); Chloride 107 meq/L (98-107); Glomerular Filtration Rate Greater Than 89 mL/min (>89); Glucose,Random 75 mg/dL (74-106); Lipase 354 U/L (73-393); Magnesium 2.2 mg/dL (1.5-2.5); Sodium 139 meq/L (136-145); Total Protein 6.5 g/dL (6.4-8.2)
--- NOTE | 2017-12-14 15:18 | P.PNGS ---
Subjective Interval history: felling better today + flatus tolerating clears Physical Exam Vital signs: Vital Signs 12/13/17 15:18 12/13/17 15:30 12/13/17 15:45 Temperature 97.2 F L Pulse Rate 103 H 82 76 Respiratory Rate 17 18 18 Blood Pressure 122/64 119/66 118/64 Pulse Oximetry 100 100 100 12/13/17 16:00 12/13/17 16:15 12/13/17 16:45 Temperature 97.6 F 97.4 F L Pulse Rate 76 94 H 73 Respiratory Rate 18 18 16 Blood Pressure 120/62 109/63 110/57 L Pulse Oximetry 96 96 96 12/13/17 20:00 12/14/17 00:00 12/14/17 04:00 Temperature 98.1 F 98.1 F 98.0 F Pulse Rate 87 84 98 H Respiratory Rate 19 19 19 Blood Pressure 100/59 L 109/67 99/55 L Pulse Oximetry 99 95 95 12/14/17 08:00 12/14/17 08:40 12/14/17 09:52 Temperature 98.1 F Pulse Rate 79 Respiratory Rate 18 18 Blood Pressure 88/51 L 110/54 L Pulse Oximetry 95 12/14/17 11:53 12/14/17 12:54 Temperature 97.7 F Pulse Rate 76 Respiratory Rate 16 18 Blood Pressure 93/54 L Pulse Oximetry 97 Intake & Output 12/13/17 12/14/17 12/14/17 18:59 06:59 18:59 Intake Total 1100 / 1100 1600 / 1600 1000 / 1000 Output Total 20 20 110 / 110 74 / 74 Balance 1080 / 1080 1490 / 1490 926 / 926 Weight 93.6 kg Intake: IV 1000 / 1000 1000 / 1000 1000 / 1000 NS + KCl 20 mEq Inj 1,000 ML @ 1000 / 1000 1000 / 1000 1000 / 1000 125 mls/hr IV.CONT .Q8H [facility] Rx# :[id number] Oral 600 / 600 Anesthesia Amount 100 / 100 Output: Estimated Blood Loss 20 / 20 Wound Drainage 110 / 110 74 / 74 left abd 110 / 110 74 / 74 right abd 0 / 0 Other: # Voids 3 Date of Last Bowel Movement 12/12/17 12/12/17 Narrative: GENERAL: NAD CARDIOVASCULAR: Regular rate and rhythm without murmurs, gallops, or rubs. RESPIRATORY: Clear to auscultation. Breath sounds equal bilaterally. No wheezes , rales, or rhonchi. GASTROINTESTINAL: Abdomen soft, normal post-operative tenderness. Bilateral ISAIAH drains with serous drainage, surgical incisions C/D/I MUSCULOSKELETAL: Extremities without clubbing, cyanosis, or edema. NEURO: Alert & Oriented x4 to person, place, time, situation. Moves all ext x4 - Additional findings Additional findings: Laboratory Results - last 12 hr 12/14/17 12/14/17 06:32 06:32 WBC 6.5 RBC 3.96 L Hgb 11.3 L Hct 33.7 L MCV 85.0 MCH 28.4 MCHC 33.5 RDW 12.6 Plt Count 244 MPV 8.2 Sodium 139 Potassium 4.0 Chloride 107 Carbon Dioxide 23.6 Anion Gap 8 BUN 7 Creatinine 0.61 Estimated GFR Greater than 89 Random Glucose 75 Calcium 7.9 L D Magnesium 2.2 Total Bilirubin 0.2 AST 15 ALT 20 Alkaline Phosphatase 101 Total Protein 6.5 D Albumin 2.8 L D Lipase 354 - Urinary Catheter Management Indwelling Urethral Catheter Cath placed during this visit: yes, but has since been removed by the nurse Urethral indwelling: No Insertion date: 12/13/17 Insertion time: 14:10 Removal date: 12/13/17 Removal time: 14:54 Assessment and Plan - Plan 27yo F POD#1 diagnostic laparoscopy -Continue with frequent ambulation -Continue with full liquids, increase to puree diet in the morning Code Status: Full Discussed Condition With: Patient Discharge Planning: Most likely tomorrow - Attending Attestation The exam, history, and the medical decision-making described in the above note were completed with the assistance of the mid-level provider. I reviewed and agree with the findings presented. I attest that I had a [id number] encounter with the patient on the same day, and personally performed and documented my assessment and findings in the medical record.
[2017-12-15] MEDS: Acetaminophen-HYDROcodone 325/7.5 Liq 15 ML UDC PO PRN ×2 (04:51→10:32)
[2017-12-15] MEDS ORDERED: Senna/Docusate Sodium 8.6/50 MG Tablet PO PRN (06:50)
[2017-12-15] MEDS: HYDROmorphone PF Inj 2 MG/ML Vial IV.PUSH PRN (07:56)
[2017-12-15] MEDS: Enoxaparin Inj 40 MG/0.4 ML Syringe SQ SCH (08:47)
[2017-12-15 09:24] VITALS: RESP 17; O2SAT 97
--- NOTE | 2017-12-15 11:19 | P.PNGS ---
Subjective Interval history: Feeling good No GI complaints + flatus Physical Exam Vital signs: Vital Signs 12/14/17 11:53 12/14/17 12:54 12/14/17 15:31 Temperature 97.7 F Pulse Rate 76 Respiratory Rate 16 18 18 Blood Pressure 93/54 L Pulse Oximetry 97 12/14/17 16:00 12/14/17 18:05 12/14/17 20:00 Temperature 97.7 F 97.4 F L Pulse Rate 76 81 Respiratory Rate 16 18 17 Blood Pressure 95/55 L 106/64 Pulse Oximetry 97 97 12/15/17 00:00 12/15/17 08:00 Temperature 98.1 F 97.7 F Pulse Rate 64 84 Respiratory Rate 18 17 Blood Pressure 112/61 110/66 Pulse Oximetry 96 97 Intake & Output 12/14/17 12/15/17 12/15/17 18:59 06:59 18:59 Intake Total 1620 / 1620 1900 / 1900 1000 / 1000 Output Total 114 / 114 110 / 110 Balance 1506 / 1506 1900 / 1900 890 / 890 Weight 93.1 kg Intake: IV 1000 / 1000 1000 / 1000 1000 / 1000 NS + KCl 20 mEq Inj 1,000 ML @ 1000 / 1000 1000 / 1000 1000 / 1000 125 mls/hr IV.CONT .Q8H [facility] Rx# :[id number] Oral 620 / 620 900 / 900 Output: Wound Drainage 114 / 114 110 / 110 left abd 114 / 114 110 / 110 Other: # Voids 6 3 Date of Last Bowel Movement 12/12/17 # Bowel Movements 0 Narrative: GENERAL: NAD CARDIOVASCULAR: Regular rate and rhythm without murmurs, gallops, or rubs. RESPIRATORY: Clear to auscultation. Breath sounds equal bilaterally. No wheezes , rales, or rhonchi. GASTROINTESTINAL: Abdomen soft, normal post-operative tenderness. Bilateral ISAIAH drains with serous drainage, surgical incisions C/D/I MUSCULOSKELETAL: Extremities without clubbing, cyanosis, or edema. NEURO: Alert & Oriented x4 to person, place, time, situation. Moves all ext x4 - Urinary Catheter Management Indwelling Urethral Catheter Cath placed during this visit: yes, but has since been removed by the nurse Urethral indwelling: No Reason for continuing: Hourly intake/output Insertion date: 12/13/17 Insertion time: 14:10 Removal date: 12/13/17 Removal time: 14:54 Assessment and Plan - Plan 27yo F POD#1 diagnostic laparoscopy -Continue with frequent ambulation -If tolerating puree diet, can discharge home later today Code Status: Full Discussed Condition With: patient and RN at bedside Discharge Planning: Most likely tomorrow - Attending Attestation The exam, history, and the medical decision-making described in the above note were completed with the assistance of the mid-level provider. I reviewed and agree with the findings presented. I attest that I had a [id number] encounter with the patient on the same day, and personally performed and documented my assessment and findings in the medical record.
[2017-12-15 12:16] VITALS: BP 109/68; PULSE 117; TEMP 97.9
== END 2017-12-15 14:35 | disposition home or self-care (01) ==
LOC: NEPE 23:46 → NEDA 12-13 07:36 → H6YA 12-13 10:47 → N07 12-13 13:03
PROVIDERS: ADMIT Surgery; ATTEND Surgery